=== PATIENT | female | born 1950 | race Caucasian/White ===

== ENCOUNTER 2016-08-01 21:13 | Emergency (ER) | payer OTHER ==
[~2016-08-01] VITALS: Ht 156.2 cm; Wt 64.0 kg
[2016-08-01 21:16] VITALS: TEMP 36.5; Ht 156.2 cm; Wt 64.0 kg
[2016-08-01] MEDS ORDERED: LEVO125T4 PO (21:58)
[2016-08-01] MEDS ORDERED: LISI-725 PO (21:59)
[2016-08-01] MEDS ORDERED: PRLSR20 PO (22:00)
[2016-08-01] MEDS ORDERED: ATOR-22 PO (22:00)
[2016-08-01] MEDS ORDERED: NIFE30TA83 PO (22:01)
[2016-08-01] MEDS ORDERED: GABA-112 PO (22:02)
[2016-08-01] MEDS ORDERED: METO25TA3 PO (22:03)
[2016-08-01] MEDS ORDERED: ZOLP5TAB PO (22:05)
[2016-08-01] MEDS ORDERED: DIAZ2TAB PO (22:06)
[2016-08-01] MEDS ORDERED: IBUPROFEN 600 MG TAB PO STA (22:08)
[2016-08-01] MEDS ORDERED: PERCOCET HOME PACK PO ONE (22:15)
[2016-08-01] MEDS ORDERED: OXYCODONE/ACETAMINOPHEN 5-325 TAB PO ONE (22:15)
--- NOTE | 2016-08-01 22:30 | EMERGENCY ROOM VISIT NOTE ---
History Report prepared by Nneka: Jasmine Mckinney Under the Supervision of: Dr. Thaddeus Lockwood M.D. First contact with patient: 21:44 Chief Complaint: FALL Stated Complaint: LOWER BACK/GROIN PAIN,CAN'T PUT WEIGHT ON LF LEG History of Present Illness The patient is a 65 year old female who presents to the Emergency Room via to be evaluated for an episode of a fall that occurred 7 hours ago. She rates her pain as a 9/10. This afternoon, the patient was on a step stool about two feet up when she fell as she missed a step. The patient fell onto her left hip. She ED now has some back pain and groin pain. The patient cannot put any weight on her left leg. The patient took 3 ibuprofen just after she fell. The patient takes 160 mg of aspirin daily. Source of History: patient Onset: 7 hours ago Position: pelvis Symptom Intensity: 9/10 Quality: other (fall) Timing: other (episode) Modifying Factors (Relieving): ibuprofen Associated Symptoms: + back pain Note: She has pelvic pain and cannot put any weight on her left leg. Review of Systems See HPI for pertinent positives & negatives. A total of 10 systems reviewed and were otherwise negative. Past Medical & Surgical Surgical Problems: (1) H/O coronary artery bypass surgery Family History Cancer Heart disease Social History Smoking Status: Never Smoker Drug Use: none Marital Status: Housing Status: lives with family Current/Historical Medications Scheduled Atorvastatin (Lipitor), 20 MG PO DAILY Diazepam (Valium), 2.5 MG PO DAILY Gabapentin (Neurontin), 500 MG PO HS Levothyroxine Sodium (Levothyroxine Sodium), 125 MCG PO DAILY Lisinopril (Zestril), 20 MG PO DAILY Metoprolol Succ (Toprol Xl) (Toprol-Xl), 37.5 MG PO DAILY Nifedipine Ext Rel (Procardia Xl Ext Rel), 30 MG PO DAILY Omeprazole (Prilosec), 20 MG PO DAILY Scheduled PRN Oxycodone/Acetaminophen 5MG/325MG (Percocet 5MG/325MG), 1-2 TAB PO Q4H PRN for Pain Zolpidem Tartrate (Ambien), 5-7.5 MG PO HS PRN for Sleep Physical Exam Vital Signs Date Time Temp Pulse Resp B/P Pulse Ox O2 Delivery O2 Flow Rate FiO2 08/02/16 00:21 56 18 97/43 99 Room Air 08/01/16 22:46 64 18 160/84 98 Room Air 08/01/16 21:16 36.5 64 18 176/78 99 Room Air Physical Exam GENERAL: Patient is a healthy-appearing well-nourished HEAD: Normocephalic atraumatic EYES: Ocular movements intact pupils equal and react to light OROPHARYNX mucous membranes are moist no exudates present no erythema or edema present NECK: Supple no nuchal rigidity CHEST: Good equal expansion LUNGS: Clear and equal to auscultation CARDIAC: Normal S1 and S2 ABDOMEN: Soft nontender no guarding BACK: No CVA tenderness EXTREMITIES: Normal muscle strength in all groups no clubbing cyanosis or edema , tender at the left SI joint NEURO: Patient is following commands is answering questions appropriately. Alert and oriented x3 Cranial Nerves 2-12 grossly intact Medical Decision & Procedures ER Provider Diagnostic Interpretation: X-ray results as stated below per interpretation by me and the radiologist. CT results as stated below per my review and radiologist interpretation: SINGLE VIEW PELVIS; 3 VIEWS SACRUM AND COCCYX CLINICAL HISTORY: Fall with pelvic and sacral pain. FINDINGS: An AP pelvic radiograph with 3 views of the sacrum and coccyx are obtained. No prior studies are available for comparison at the time of dictation. The skeletal structures are osteopenic. There is no radiographic evidence of acute fracture involving the hips or bony pelvis. There is no radiographic evidence of sacrococcygeal fracture. Minimal sclerotic change is noted involving the sacroiliac joints. Minimal arthritic changes also present in the hips. The overlying soft tissues are within normal limits. A large phlebolith is present the right hemipelvis. There is a nonobstructed abdominal bowel gas pattern. Advanced atherosclerotic calcification is noted in the abdominal aorta. IMPRESSION: 1. Osteopenia with no acute bony abnormality seen in the hips or pelvis. 2. There is no radiographic evidence of sacrococcygeal fracture. Electronically signed by: Babatunde Porter M.D. 08/01/2016 10:45 PM Dictated Date/Time: 08/01/2016 10:42 PM LEFT FEMUR 3 VIEWS CLINICAL HISTORY: Fall with left leg pain. FINDINGS: AP, frog-leg, and lateral views of the left femur are correlated with pelvic radiograph performed concurrently on 08/01/2016. The skeletal structures are osteopenic. There is no radiographic evidence of left femoral fracture. The hip and knee joints appear maintained. The visualized left bony pelvis appears intact. The overlying soft tissues are within normal limits. There is atherosclerotic calcification of the left femoral artery. IMPRESSION: There is no radiographic evidence of left femoral fracture. Electronically signed by: Babatunde Porter M.D. 08/01/2016 10:46 PM Dictated Date/Time: 08/01/2016 10:45 PM SINGLE VIEW PELVIS; 3 VIEWS SACRUM AND COCCYX CLINICAL HISTORY: Fall with pelvic and sacral pain. FINDINGS: An AP pelvic radiograph with 3 views of the sacrum and coccyx are obtained. No prior studies are available for comparison at the time of dictation. The skeletal structures are osteopenic. There is no radiographic evidence of acute fracture involving the hips or bony pelvis. There is no radiographic evidence of sacrococcygeal fracture. Minimal sclerotic change is noted involving the sacroiliac joints. Minimal arthritic changes also present in the hips. The overlying soft tissues are within normal limits. A large phlebolith is present the right hemipelvis. There is a nonobstructed abdominal bowel gas pattern. Advanced atherosclerotic calcification is noted in the abdominal aorta. IMPRESSION: 1. Osteopenia with no acute bony abnormality seen in the hips or pelvis. 2. There is no radiographic evidence of sacrococcygeal fracture. Electronically signed by: Babatunde Porter M.D. 08/01/2016 10:45 PM Dictated Date/Time: 08/01/2016 10:[address] Pelvis: Intraosseous gas focus involving ileum adjacent to the SI joint. This may be degenerative or may represent an incidental/ benign intraosseous pneumatocyst as long as there is no clinical concern for infection. No other adjacent signs of infection. No evidence for osteonecrosis. No acute or healing fracture or malalignment. No soft tissue hematoma or other significant soft tissue abnormalities. Radiologist: Kvng Walden MD. Medications Administered Medications (Trade) Dose Ordered Sig/Dwight Route Start Time Stop Time Status Last Admin Dose Admin Ibuprofen (Motrin Tab) 600 mg NOW STAT PO 08/01/16 22:08 08/01/16 22:09 DC 08/01/16 22:44 600 MG Oxycodone/ Acetaminophen (Percocet 5-325mg Tab) 2 tab NOW ONCE PO 08/01/16 22:15 2/13/17 22:16 DC 08/01/16 22:44 2 TAB Oxycodone/ Acetaminophen (Percocet 5/ 325MG Home Pack) 1 homepack UD ONCE PO 08/01/16 22:15 08/01/16 22:16 DC 08/02/16 00:06 1 HOMEPACK ED Course 2201: Past medical records reviewed. The patient was evaluated in room C4. A complete history and physical examination was performed. 2207: Motrin Tab 600 mg PO 2214: Oxycodone/ Acetaminophen 1 homepack PO, Oxycodone/ Acetaminophen 2 tab PO 2259: I reevaluated the patient; she would like a CT. 0: Upon reexamination the patient is doing well. I discussed results and treatment plan with the patient. She verbalizes agreement and understanding. The patient is ready for discharge. Medical Decision The patient is a 65 year old female who presents to the ED to be evaluated after a fall. Differential diagnosis: Etiologies such as fracture, dislocation, intra-abdominal, pneumothorax, intrathoracic , intracranial, neurologic, as well as other traumatic pathologies were entertained. This is a 65-year-old female that presents emergency department after fall at home. Patient is unable to place weight on her left leg. She was sent for x- rays of the pelvis sacrum as well as femur. The x-rays do not show any evidence of acute fracture. The patient is requesting a CAT scan as she cannot put weight on the leg. The patient was sent for CAT scan however there does not appear to be any evidence of fracture dislocation or subluxation. The patient will be placed on crutches. I stressed the need for follow-up with orthopedics. The patient was given ibuprofen as well as Percocet. Patient was in agreement with the treatment plan. Impression Primary Impression: Fall Additional Impression: Left hip pain Scribe Attestation The scribe's documentation has been prepared under my direction and personally reviewed by me in its entirety. I confirm that the note above accurately reflects all work, treatment, procedures, and medical decision making performed by me. Departure Information Dispostion Home / Self-Care Prescriptions Oxycodone/Acetaminophen 5MG/325MG (PERCOCET 5MG/325MG) Tab 1-2 TAB PO Q4H Y for Pain, #14 TAB Prov: Thaddeus Lockwood MD 08/01/16 Referrals Anabela Perkins M.D. (PCP) Forms HOME CARE DOCUMENTATION FORM, IMPORTANT VISIT INFORMATION, School Instructions, Work Instructions Patient Instructions ED Contusion Hip, ED Crutch Walking, My [facility] Additional Instructions Follow up with DR Ocampo's office You received narcotic or benzodiazepene medication while in the emergency room today. Do not drive, operate heavy machinery, or drink alcohol under the influence of this medication. Take 600 mg Ibuprofen every 6 hours Take Percocet for breakthrough pain You have been examined and treated today on an emergency basis only. This is not a substitute for, or an effort to provide, complete comprehensive medical care. It is impossible to recognize and treat all injuries or illnesses in a single emergency department visit. It is therefore important that you follow up closely with Dr Perkins. Call as soon as possible for an appointment. Thank you for your time and consideration. I look forward to speaking with you again soon. Please don't hesitate to call us if you have any questions. Problem Qualifiers Primary Impression: Fall Encounter type: initial encounter Qualified Codes: W19.XXXA - Unspecified fall, initial encounter
--- NOTE | 2016-08-01 22:46 | DIAGNOSTIC IMAGING REPORT ---
SINGLE VIEW PELVIS; 3 VIEWS SACRUM AND COCCYX CLINICAL HISTORY: Fall with pelvic and sacral pain. FINDINGS: An AP pelvic radiograph with 3 views of the sacrum and coccyx are obtained. No prior studies are available for comparison at the time of dictation. The skeletal structures are osteopenic. There is no radiographic evidence of acute fracture involving the hips or bony pelvis. There is no radiographic evidence of sacrococcygeal fracture. Minimal sclerotic change is noted involving the sacroiliac joints. Minimal arthritic changes also present in the hips. The overlying soft tissues are within normal limits. A large phlebolith is present the right hemipelvis. There is a nonobstructed abdominal bowel gas pattern. Advanced atherosclerotic calcification is noted in the abdominal aorta. IMPRESSION: 1. Osteopenia with no acute bony abnormality seen in the hips or pelvis. 2. There is no radiographic evidence of sacrococcygeal fracture. Electronically signed by: Babatunde Porter M.D. 08/01/2016 10:45 PM Dictated Date/Time: 08/01/2016 10:42 PM
--- NOTE | 2016-08-01 22:47 | DIAGNOSTIC IMAGING REPORT ---
LEFT FEMUR 3 VIEWS CLINICAL HISTORY: Fall with left leg pain. FINDINGS: AP, frog-leg, and lateral views of the left femur are correlated with pelvic radiograph performed concurrently on 08/01/2016. The skeletal structures are osteopenic. There is no radiographic evidence of left femoral fracture. The hip and knee joints appear maintained. The visualized left bony pelvis appears intact. The overlying soft tissues are within normal limits. There is atherosclerotic calcification of the left femoral artery. IMPRESSION: There is no radiographic evidence of left femoral fracture. Electronically signed by: Babatunde Porter M.D. 08/01/2016 10:46 PM Dictated Date/Time: 08/01/2016 10:45 PM
[2016-08-01] MEDS ORDERED: OXYC-57 PO (23:55)
[2016-08-02 00:21] VITALS: BP 97/43; PULSE 56; O2SAT 99
--- NOTE | 2016-08-02 07:23 | DIAGNOSTIC IMAGING REPORT ---
PELVIS CT CT DOSE: 685.35 mGy.cm HISTORY: Fall. Pt c/o left hip pain TECHNIQUE: Multiaxial CT images of the pelvis were performed and reformatted in the sagittal and coronal plane without the use of contrast. COMPARISON: Pelvis 08/01/2016. FINDINGS: No acute fracture or dislocation within the pelvis or hips. Intraosseous gas collection within the left iliac bone adjacent to the sacroiliac joint. This is likely due to degenerative change. Small amount of gas within the right sacroiliac joint. Presacral soft tissues are intact. No pelvic hematoma. The bladder, uterus, and bilateral adnexa are unremarkable. No pelvic free fluid. Moderate well-formed stool seen within the colon. IMPRESSION: No fracture or dislocation within the pelvis or hips. Electronically signed by: Cristhian Carballo M.D. 08/02/2016 7:22 AM Dictated Date/Time: 08/02/2016 7:16 AM
== END 2016-08-02 00:23 | disposition home or self-care (01) ==
LOC: C.EDB 21:14 → C.EDC 08-02 00:23
DX: M25.552 Pain in left hip (principal); W19.XXXA Unspecified fall, initial encounter

== ENCOUNTER → 2016-08-10 | Outpatient (CLI) | payer OTHER ==
[~2016-08-10] MED LIST: ATOR-22 PO; DIAZ2TAB PO; GABA-112 PO; LEVO125T4 PO; LISI-725 PO; METO25TA3 PO; NIFE30TA83 PO; OXYC-57 PO; PRLSR20 PO; ZOLP5TAB PO
--- NOTE | 2016-08-10 20:53 | DIAGNOSTIC IMAGING REPORT ---
PELVIS WITHOUT CONTRAST (MRI) HISTORY: Fall. Left HIP,GROIN,LOWER BACK PAIN TECHNIQUE: Multiplanar multisequence MRI of the pelvis was performed without the use of intravenous contrast. COMPARISON STUDY: Pelvis CT 08/01/2016. FINDINGS: There is marrow edema with subtle nondisplaced fractures involving the left sacral ala, left superior pubic ramus, and left inferior pubic ramus. There is mild surrounding soft tissue edema at these locations. No fracture or dislocation within the proximal right or left femur. The bones of the right hemipelvis are within normal limits. The visualized lower lumbar spine is intact. The endometrial stripe is thickened for age and measures up to 8 mm. IMPRESSION: 1. Nondisplaced fractures involving the left sacral wing and left superior and inferior pubic rami. 2. Mildly thickened endometrium for age measuring up to 8 mm. Recommend follow-up gynecological consultation and pelvic ultrasound. Electronically signed by: Cristhian Carballo M.D. 08/10/2016 8:52 PM Dictated Date/Time: 08/10/2016 8:45 PM
== END | disposition home or self-care (01) ==
LOC: C.MRI 19:20
PROVIDERS: ATTEND Orthopaedic Surgery
DX: S32.19XA Other fracture of sacrum, initial encounter for closed fracture (principal); X58.XXXA Exposure to other specified factors, initial encounter

== ENCOUNTER → 2016-11-02 | Outpatient (CLI) | payer OTHER ==
[~2016-11-02] MED LIST changes: -LEVO125T4 PO; +LEVO125T5 PO
--- NOTE | 2016-11-02 16:44 | DIAGNOSTIC IMAGING REPORT ---
ULTRASOUND LEFT LOWER EXTREMITY VENOUS CLINICAL HISTORY: Leg pain and swelling. COMPARISON STUDY: No priors. TECHNIQUE: Real-time, grayscale, and color Doppler sonography of the deep veins of the left lower extremity was performed from the inguinal crease to the calf. Compression and augmentation were utilized. FINDINGS: There is no sonographic evidence of deep venous thrombosis identified in the left lower extremity. The common femoral, superficial femoral, and popliteal veins are patent and normally compressible. The greater saphenous vein and the profunda femoris vein at the junction with the common femoral vein are clear. The visualized calf veins are patent. No sonographic abnormality is seen along the dorsal surface of the foot at the indicated site of pain and swelling. IMPRESSION: There is no sonographic evidence of deep venous thrombosis identified in the left lower extremity. Electronically signed by: Babatunde Porter M.D. 11/02/2016 4:42 PM Dictated Date/Time: 11/02/2016 4:42 PM
== END | disposition home or self-care (01) ==
LOC: C.ULTR 15:46
PROVIDERS: ATTEND Orthopaedic Surgery
DX: M79.605 Pain in left leg (principal); M79.89 Other specified soft tissue disorders

== ENCOUNTER → 2017-02-06 | Outpatient (CLI) | payer OTHER ==
[~2017-02-06] MED LIST changes: +LEVO125T4 PO; -LEVO125T5 PO; -OXYC-57 PO
--- NOTE | 2017-02-07 07:58 | MAMMOGRAPHY REPORT ---
BILATERAL DIGITAL SCREENING MAMMOGRAM WITH CAD: 02/06/2017 CLINICAL HISTORY: Routine screening. Patient has no complaints. TECHNIQUE: Bilateral CC and MLO views were obtained. Current study was also evaluated with a Compute r Aided Detection (CAD) system. COMPARISON: Comparison is made to exams dated: 02/11/2015 mammogram, 02/22/2013 mammogram, 07/02/2010 ma mmogram - [facility], 07/22/2008, 02/13/2006 mammogram, and 04/05/2004 mammogram - [facility]. BREAST COMPOSITION: The tissue of both breasts is heterogeneously dense, which may obscure small mas ses. FINDINGS: The parenchymal pattern is unchanged. No developing mass, architectural distortion or clus ter of suspicious microcalcifications is seen in either breast. IMPRESSION: ACR BI-RADS CATEGORY 2: BENIGN There is no mammographic evidence of malignancy. A 1 year screening mammogram is recommended. The pa tient will receive written notification of the results. Approximately 10% of breast cancers are not detected with mammography. A negative mammographic report should not delay biopsy if a clinically suggestive mass is present. Indiana Stewart M.D. ay/:02/06/2017 16:33:54 Scanner Operator: Brianda PARIKH(R)(M), [facility] letter sent: Normal 1/2 BI-RADS Code: ACR BI-RADS Category 2: Benign
== END | disposition home or self-care (01) ==
LOC: C.MAMM 15:36
PROVIDERS: ATTEND Family Medicine
DX: Z12.31 Encounter for screening mammogram for malignant neoplasm of breast (principal)